=== PATIENT | female | born 2000 | race Caucasian/White ===

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

== ENCOUNTER 2024-04-03 13:47 | Emergency (ER) | payer OTHER ==
[~2024-04-03] VITALS: Ht 165.1 cm; Wt 60.0 kg
[2024-04-03] MEDS: ACETAMINOPHEN 500 MG TAB PO ONE ×2 (14:46→21:42)
[2024-04-03 17:47] LABS: BASO # 0.1 10^3/uL (0.0-0.2); BASO % 0.3 % (0.0-1.0); EOS % 0.1 % (0.0-3.0); HEMATOCRIT 39.6 % (36.0-47.0); HEMOGLOBIN 12.9 g/dl (12.0-15.5); LYMPH % 8.8 % (24.0-44.0); MEAN CORPUSCULAR HEMOGLOBIN 30.1 pg (27.0-33.0); MEAN CORPUSCULAR HGB CONC 32.6 g/dl (32.0-36.5); MEAN CORPUSCULAR VOLUME 92.5 fl (80.0-96.0); MONO # 1.3 10^3/uL (0.0-0.8); MONO % 5.7 % (2.0-8.0); NEUTROPHILS # 19.3 10^3/uL (1.5-8.5); NEUTROPHILS % 84.4 % (36.0-66.0); PLATELET COUNT, AUTOMATED 273 10^3/uL (150-450); RED BLOOD COUNT 4.28 10^6/uL (4.00-5.40); WHITE BLOOD COUNT 22.8 10^3/uL (4.0-10.0)
[2024-04-03 18:06] LABS: LIPASE 23 U/L (12-53)
[2024-04-03 18:09] LABS: ALBUMIN 3.8 G/DL (3.2-5.2); ALKALINE PHOSPHATASE 71 U/L (46-116); ALT/SGPT 18 U/L (7.0-40); AST/SGOT 13 U/L (<34); BILIRUBIN,DIRECT 0.2 MG/DL (<0.4); BILIRUBIN,TOTAL 0.5 MG/DL (0.3-1.2); BLOOD UREA NITROGEN 8 MG/DL (9-23); CALCIUM LEVEL 9.2 MG/DL (8.5-10.1); CARBON DIOXIDE LEVEL 24 MMOL/L (20-31); CHLORIDE LEVEL 102 MMOL/L (98-107); CREATININE FOR GFR 0.82 MG/DL (0.55-1.30); GLOMERULAR FILTRATION RATE > 60.0 (>60); GLUCOSE, FASTING 91 MG/DL (60-100); POTASSIUM SERUM 3.6 MMOL/L (3.5-5.1); SODIUM LEVEL 135 MMOL/L (136-145); TOTAL PROTEIN 6.8 G/DL (5.7-8.2)
[2024-04-03 18:20] LABS: HCG, SERUM QUALITATIVE NEGATIVE (NEGATIVE)
[2024-04-03] MEDS ORDERED: ISOVUE-370 76% 100ML VIAL As Ordered ONE (18:28)
[2024-04-03 18:35] LABS: MONO SCRN NEGATIVE (NEGATIVE)
[2024-04-03] MEDS: AMPICILLIN SOD/SULBACTAM SOD 3 GM in D5W MINI-BAG PLUS 100 ML IV ONE (18:37)
[2024-04-03 18:43] LABS: ERYTHROCYTE SEDIMENTATION RATE 55 mm/hr (0-20)
[2024-04-03 18:55] LABS: PROCALCITONIN 0.17 ng/ml
[2024-04-03 19:55] LABS: Trichomonas vaginalis (AMP) NOT DETECTED (NEGATIVE)
[2024-04-03 20:20] LABS: GC DNA AMPLIFICATION NEGATIVE (NEGATIVE)
[2024-04-03] MEDS ORDERED: MEDR4PAK PO (21:18)
[2024-04-03] MEDS ORDERED: IBUP-354 PO (21:18)
[2024-04-03] MEDS ORDERED: ACET325C5 PO (21:18)
[2024-04-03] MEDS ORDERED: AMOX875T2 PO (21:18)
[2024-04-03 21:42] VITALS: BP 101/54; TEMP 100; O2SAT 99
== END 2024-04-03 21:43 | disposition home or self-care (01) ==
LOC: M ED 13:47
DX: J36 Peritonsillar abscess (principal); Z79.2 Long term (current) use of antibiotics; Z79.1 Long term (current) use of non-steroidal anti-inflammatories (NSAID); Z79.899 Other long term (current) drug therapy
CPT/HCPCS: 70491; 80048; 80076; 81001; 83690; 84145; 84703; 85025; 85652; 86140; 86308; 87086; 87486; 87581; 87633; 87661; 87798; 87810; 87850; 87880; 96365; 96375; 99284; J0295; J1100; Q9967

== ENCOUNTER → 2024-04-12 | Outpatient (REF) | payer OTHER ==
[~2024-04-12] MED LIST: ACET325C5 PO; AMOX875T2 PO; IBUP-354 PO; MEDR4PAK PO
== END ==
LOC: M LAB REF 12:33
PROVIDERS: ATTEND Internal Medicine
DX: J03.90 Acute tonsillitis, unspecified (principal)

== ENCOUNTER → 2024-08-27 | Outpatient (REF) | payer OTHER ==
[2024-08-27 19:12] LABS: Trichomonas vaginalis (AMP) NOT DETECTED (NEGATIVE)
[2024-08-27 19:36] LABS: GC DNA AMPLIFICATION NEGATIVE (NEGATIVE)
== END ==
LOC: M SFHCWAGY 17:00
PROVIDERS: ATTEND Nurse Practitioner Family
DX: N73.9 Female pelvic inflammatory disease, unspecified (principal); Z12.4 Encounter for screening for malignant neoplasm of cervix; Z11.3 Encounter for screening for infections with a predominantly sexual mode of transmission
CPT/HCPCS: 87070; 87077; 87661; 87810; 87850; G0123

== ENCOUNTER → 2025-03-11 | Outpatient (REF) | payer OTHER ==
[2025-03-13 11:12] LABS: APPEARANCE, URINE CLEAR (CLEAR); GLUCOSE, URINE (UA) AUTO NEGATIVE (NEGATIVE); KETONE, URINE AUTO 2+ mg/dL (NEGATIVE); PROTEIN, URINE AUTO TRACE mg/dL (NEGATIVE); SPECIFIC GRAVITY URINE AUTO 1.015 (1.002-1.035); URINE PREG TEST NEGATIVE (NEGATIVE)
[2025-03-13 11:13] LABS: BACTERIA, URINE AUTO 2+ (NEGATIVE); BILIRUBIN, URINE AUTO NEGATIVE (NEGATIVE); BLOOD, URINE BLOOD TRACE (NEGATIVE); LEUKOCYTE ESTERASE, URINE AUTO TRACE (NEGATIVE); NITRITE, URINE AUTO NEGATIVE (NEGATIVE); RBC, URINE AUTO 0-3 /HPF (0-3); UROBILINOGEN, URINE AUTO 0.2 mg/dL (0.0-2.0); WBC, URINE AUTO 25-30 /HPF (0-3)
[2025-03-13 11:14] LABS: MUCUS, URINE MODERATE (NEGATIVE)
== END ==
LOC: M LAB REF 11:08
PROVIDERS: ATTEND Physician Assistant Medical
DX: N39.0 Urinary tract infection, site not specified (principal)